=== PATIENT | male | born 1960 | race Caucasian/White ===

== ENCOUNTER 2020-04-02 10:03 | Inpatient (IN) | payer MEDICARE, OTHER ==
[2020-04-02 11:40] LABS: #Eosinphils 0.1 thou/uL (0.0-0.7); #Lymphocytes 1.4 thou/uL (1.20-3.40); #Monocytes 1.1 thou/uL (0.11-0.59); #Neutrophils 9.6 thou/uL (1.40-6.50); %Basophils 0.3 % (0.0-1.0); %Eosinophils 0.6 % (0.0-10.0); %Lymphocytes 11.6 % (21.0-51.0); %Monocytes 9.1 % (0.0-10.0); %Neutrophils 78.4 % (42.0-75.0); Hemoglobin 13.8 g/dL (14.0-18.0); Mean Corpuscular HGB CONC 30.7 g/dL (32.0-36.0); Mean Corpuscular Hemoglobin 24.8 pg (27.0-31.0); Mean Corpuscular Volume 80.7 fL (78.0-98.0); Platelet Count 277 thou/uL (130-400); RBC Distribution Width 15.9 % (11.5-14.5); Red Blood Cell (RBC) Count 5.58 mill/uL (4.70-6.10); White Blood Cell (WBC) Count 12.2 thou/uL (4.8-10.8)
[2020-04-02 12:12] LABS: ALT (SGPT) 43 U/L (8-55); AST (SGOT) 146 U/L (5-34); Acetaminophen Less than 6.0 mcg/mL (10.0-30.0); Albumin 4.2 g/dL (3.5-5.0); Alcohol Less than 10 mg/dL (Less than 10); Alkaline Phosphatase 107 U/L (40-110); Anion Gap 17 mmol/L (10-20); BUN (Urea Nitrogen) 12 mg/dL (8.4-25.7); Bilirubin, Total 0.5 mg/dL (0.2-1.2); Calc. Creatinine Clearance 0 mL/min (70-130); Calcium 8.9 mg/dL (7.8-10.44); Carbon Dioxide 20 mmol/L (22-29); Chloride 107 mmol/L (98-107); Estimated GFR-MDRD 45; Globulin 2.9 g/dL (2.4-3.5); Glucose 105 mg/dL (70-105); Potassium 3.9 mmol/L (3.5-5.1); Protein, Total 7.1 g/dL (6.0-8.3); Salicylate Less than 8.0 mg/dL (15.0-30.0); Sodium 140 mmol/L (136-145)
--- NOTE | 2020-04-02 12:30 | RAD ---
Exam: Chest one view HISTORY:Fall. Pain. Trauma. Comparison: None. FINDINGS: Cardiac silhouette: Normal Aorta: Unremarkable Pulmonary vessels: Normal Costophrenic angles: Clear LUNGS: No masses or consolidation. Pneumothorax: None Osseous abnormalities: None IMPRESSION: No acute cardiopulmonary process.
[2020-04-02 12:37] LABS: CK (CPK) 11542 U/L (30-200)
--- NOTE | 2020-04-02 12:39 | CT ---
CT CERVICAL SPINE WITH CORONAL AND SAGITTAL REFORMATIONS AND NO IV CONTRAST: HISTORY: Injury, neck pain FINDINGS: Mild degenerative changes are present. There is loss of cervical lordosis with straightening of the cervical spine. No fracture, subluxation or facet malalignment is identified. No prevertebral soft tissue swelling is apparent. The visualized lung apices are unremarkable. IMPRESSION: No CT evidence for fracture or traumatic subluxation.
--- NOTE | 2020-04-02 12:46 | CT ---
CT CHEST, ABDOMEN AND PELVIS WITH IV CONTRAST AND CORONAL AND SAGITTAL REFORMATTED FORMATIONS OF THE THORACOLUMBAR SPINE: HISTORY: injury, fall, chest pain, abdominal pain, back pain FINDINGS: No pneumothoraces or pulmonary contusions are seen. No pleural or pericardial effusions are identifie d. No mediastinal hematoma is seen. There are calcified lymph nodes in the mediastinum and hilar regions. The liver, spleen, pancreas, adrenal glands and kidneys appear intact. There are nonobstructing bilat eral renal calculi. Gallbladder and urinary bladder also appear intact. No free air or free fluid is seen in the abdomen or pelvis. No acute fracture or subluxation is seen in the thoracic lumbar spine. There are postop changes and m etallic hardware in the left hemipelvis. IMPRESSION: No CT evidence of acute intrathoracic or solid organ injury.
[2020-04-02] MEDS ORDERED: Ketorolac Tromethamine 30 MG/ML VIAL ONE (12:52)
--- NOTE | 2020-04-02 12:55 | CT ---
BRAIN CT WITHOUT IV CONTRAST: Date: 04/02/2020 HISTORY: Injury from a trip and fall at home with pain, trauma. FINDINGS: No focal mass or midline shift. No intra or extra-axial hemorrhage. Sinuses and mastoids are clear of acute process. IMPRESSION: No significant acute intracranial process. No mass or bleed. POS: OFF
[2020-04-02] MEDS ORDERED: hydrALAZINE 20 MG/ML VIAL SLOW IVP PRN (16:10)
[2020-04-02] MEDS ORDERED: Ondansetron PF 4 MG/2 ML Vial IVP PRN (16:10)
[2020-04-02] MEDS ORDERED: Acetaminophen 325 MG TAB PO PRN (16:10)
[2020-04-02] MEDS ORDERED: Ondansetron ODT 4 MG TAB PO PRN (16:10)
[2020-04-02 16:15] VITALS: BMI 31.9
[2020-04-02 16:48] LABS: Amphetamine Not Detected (NotDetected); Cocaine Metabolite Screen Not Detected (NotDetected); Medtox Reader # READER 4; Methamphetamine Not Detected (NotDetected); Opiate Screen Not Detected (NotDetected); Phencyclidine (PCP) Not Detected (NotDetected); THC/Cannabinoid Screen Detected (NotDetected); Tricyclic Screen Detected (NotDetected)
[2020-04-02 16:49] LABS: Barbiturates Screen Not Detected (NotDetected); Benzodiazepine Screen Not Detected (NotDetected); Medtox Control Line Valid? VALID (VALID); Methadone Not Detected (NotDetected); Oxycodone Screen Not Detected (NotDetected)
[2020-04-02] MEDS: Lactated Ringer's 1,000 ML IV SCH (17:08)
[2020-04-02] MEDS: traMADol HCl 50 MG TAB PO PRN (18:34)
[2020-04-02] MEDS: Famotidine 20 MG TAB PO SCH (20:41)
[2020-04-02] MEDS: busPIRone HCl 10 MG TAB PO SCH (20:41)
--- NOTE | 2020-04-02 21:50 | HP ---
PRIMARY CARE PHYSICIAN: Dr. Sudeep Villafana at [facility] [place]. CHIEF COMPLAINT: Frequent falls. HISTORY OF PRESENT ILLNESS: The history of present illness is extremely limited as the patient is very drowsy and unable to give me a history. His sister has since left the emergency room, who was the historian. I tried calling the phone number in the chart and it went to voicemail. But from review of the records, Mr. Mayer is a 59-year-old gentleman, who has a history of bipolar disorder and schizoaffective disease. Apparently, and according to the sister, the patient does not take his medications as directed and sometimes will take all of his medications at once. Apparently, he has been falling quite a bit at home and she brought him in to the emergency room for evaluation. Apparently, he has been feeling dizzy. He denies any loss of consciousness. He denies hitting his head. There was no weakness in his extremities. He had an evaluation in the ER with a CT scan of the brain as well as a C-spine and abdomen and pelvis, all of which were essentially negative. Chest x-ray was also unrevealing. However, he did have a CK, which was extremely high at 11,542 with evidence of an elevated creatinine and for this reason, he is being admitted for rhabdomyolysis. When I came to see the patient, he was very somnolent. He would wake up. He was able to answer one or two questions with single word answers and then would fall right back to sleep. REVIEW OF SYSTEMS: Unobtainable. PAST MEDICAL HISTORY: According to the ER records include hypertension, bipolar disorder, and schizoaffective disorder. PAST SURGICAL HISTORY: He has had a left orthopedic surgery. ALLERGIES: UNKNOWN. SOCIAL HISTORY: Unobtainable due to the patient being lethargic. FAMILY HISTORY: Also unobtainable. MEDICATIONS: From the records include; 1. Lyrica 200 mg twice daily. 2. Lamictal 25 mg at bedtime. PHYSICAL EXAMINATION: GENERAL: He is drowsy, but appears well developed and well nourished. He does not appear to be in distress. VITAL SIGNS: His blood pressure was 146/105, heart rate was 111, respiratory rate of 20, temperature is 98.9, and O2 saturation was 98% on room air. HEENT: His pupils are equal, round, and reactive to light. Extraocular muscles were intact. His sclerae were anicteric. NECK: There was no adenopathy. No elevated JVP. LUNGS: Clear except for some occasional rhonchi. CARDIOVASCULAR: He had a normal S1 and S2. There is no S3 or S4. No murmurs, clicks, or rubs. ABDOMEN: Obese, it is soft, nontender, and nondistended. Normal bowel sounds. EXTREMITIES: On his extremities, his lower extremities, there was no edema, but he did appear to have some muscle wasting in the calves. His knee, there was no effusions, but some mild erythema. NEUROLOGIC: He is moving all of his extremities. SKIN AND INTEGUMENT: He had a plaque-like silvery rash on the right knee almost psoriatic in appearance and a red patch on the left knee. Otherwise, no other obvious skin lesions. LABORATORY DATA: Lab results; white blood cell count 12.2, hemoglobin 13.8, hematocrit is 45, and platelet count is 277. Sodium 140, potassium 3.9, chloride is 107, CO2 is 20, BUN of 12, creatinine 1.58, glucose is 105, AST is 146, and ALT is 43. CK was 11,542. Plasma toxicology was negative for alcohol, salicylates, or acetaminophen. ASSESSMENT AND PLAN: This is a 59-year-old gentleman, who is very somnolent and has been having frequent falls. He appears to have some type of toxic metabolic encephalopathy right now as he is extremely drowsy and difficult to arouse. He also was found to have rhabdomyolysis with some renal insufficiency or acute kidney injury involved. He will be admitted to the medical floor. He will likely require at least two midnights in order to improve. He will be placed on IV fluids and will monitor his renal function. We will check his electrolytes including phosphate and magnesium. 1. Frequent falls. This is likely due to inappropriate taking of his medications. It is also noted in the records that he may have a history of substance abuse. We will therefore get a urine drug screen as well. He may need adjustments on his psychiatric medications and these will need to be reconciled as certain antidepressants or psychiatric medications, could potentially put him at risk for rhabdomyolysis as well. 2. Hypertension. We will reconcile and restart his antihypertensive medications. 3. He will be placed on deep venous thrombosis and gastrointestinal prophylaxis. Job ID: [id number]
[2020-04-03] MEDS: Lactated Ringer's 1,000 ML IV SCH ×4 (01:13→21:50)
[2020-04-03] MEDS: traMADol HCl 50 MG TAB PO PRN ×3 (05:00→21:49)
[2020-04-03 05:54] LABS: #Eosinphils 0.3 thou/uL (0.0-0.7); #Lymphocytes 1.3 thou/uL (1.20-3.40); #Monocytes 0.8 thou/uL (0.11-0.59); %Basophils 0.1 % (0.0-1.0); %Eosinophils 3.3 % (0.0-10.0); %Lymphocytes 13.4 % (21.0-51.0); %Monocytes 8.5 % (0.0-10.0); %Neutrophils 74.7 % (42.0-75.0); Hemoglobin 11.3 g/dL (14.0-18.0); Mean Corpuscular HGB CONC 30.3 g/dL (32.0-36.0); Mean Corpuscular Hemoglobin 24.8 pg (27.0-31.0); Mean Corpuscular Volume 81.9 fL (78.0-98.0); Mean Platelet Volume 9.7 fL (7.4-10.4); Platelet Count 215 thou/uL (130-400); RBC Distribution Width 15.8 % (11.5-14.5); Red Blood Cell (RBC) Count 4.54 mill/uL (4.70-6.10); White Blood Cell (WBC) Count 9.4 thou/uL (4.8-10.8)
[2020-04-03 06:19] LABS: Anion Gap 12 mmol/L (10-20); BUN (Urea Nitrogen) 11 mg/dL (8.4-25.7); Calc. Creatinine Clearance 95 mL/min (70-130); Calcium 7.6 mg/dL (7.8-10.44); Carbon Dioxide 21 mmol/L (22-29); Chloride 111 mmol/L (98-107); Estimated GFR-MDRD 74; Glucose 105 mg/dL (70-105); Potassium 3.6 mmol/L (3.5-5.1); Sodium 140 mmol/L (136-145)
[2020-04-03 06:31] LABS: CK (CPK) 6355 U/L (30-200)
--- NOTE | 2020-04-03 09:37 | PDOC.HOSPP ---
- Subjective Encounter Date: 04/03/20 Encounter Time: 09:32 Subjective: Mr. Mayer was seen today in follow-up of Rhabdomyolysis. He is complaining of some soreness in his shoulders, and knees. He admits to having dizzy spells off and on, but says they are " rare" , Once a month or so, and lasting a few minutes when they happen. They only occur when standing. He denies that he takes his medications in an irregular manner. He says if he misses a dose in the morning , he will just skip it, or take his evening dose early. He tells me he has had a stroke a few years ago. - Objective Vital Signs & Weight: Vital Signs (12 hours) Temp Pulse Resp BP Pulse Ox 04/03/20 04:00 98.2 F 97 20 135/93 H 94 L 04/03/20 00:00 97.5 F L 100 20 131/87 97 Weight Weight 192 lb 1 oz I&O: 04/02/20 04/03/20 04/04/20 06:59 06:59 06:59 Intake Total 2015 Output Total 1000 Balance 1015 Result Diagrams: 04/03/20 05:24 04/03/20 05:24 Hospitalist ROS - Medication Medications: Active Medications Generic Name Dose Route Start Last Admin Trade Name Gonzaloq PRN Reason Stop Dose Admin Buspirone HCl 10 mg 04/02/20 21:00 04/02/20 20:41 Buspar PO 10 mg TID DAVID Administration Famotidine 20 mg 04/02/20 21:00 04/02/20 20:41 Pepcid PO 20 mg BID DAVID Administration Lactated Ringer's 1,000 mls @ 125 mls/hr 04/02/20 16:10 04/03/20 01:13 Lactated Ringer's IV 1,000 mls .Q8H DAVID Administration Tramadol HCl 50 mg 04/02/20 17:45 04/03/20 05:00 Ultram PO 50 mg Q4H PRN Administration Moderate Pain (4-6) - Exam Eye: PERRL, anicteric sclera Heart: RRR, no murmur, no gallops, no rubs, normal peripheral pulses Respiratory: CTAB, no wheezes, no rales, no ronchi, normal chest expansion, no tachypnea Gastrointestinal: soft, non-tender, non-distended, normal bowel sounds, no palpable masses, no hepatomegaly Extremities: no cyanosis, no edema Neurological: cranial nerve grossly intact, normal sensation to touch, no focal deficits Musculoskeletal - other findings: + mild muscle atrophy in the left lower extremity Psychiatric: A&O x 3 Hosp A/P (1) Rhabdomyolysis Code(s): M62.82 - RHABDOMYOLYSIS Status: Acute (2) Bipolar disorder Code(s): F31.9 - BIPOLAR DISORDER, UNSPECIFIED Status: Acute (3) Hypertension Code(s): I10 - ESSENTIAL (PRIMARY) HYPERTENSION Status: Acute - Plan * Rhabdomyolysis- will continue IV hydration, and continue monitoring CK and renal function * ISABEL- improving * Frequent falls- will discuss with the patient's sister, as his account of the situation is different from what was reported in the ER records. In the meantime will check an MRI to rule out posterior circulation CVA * HTN- re-start his home medications * Bipolar disorder- re-start his home medications
[2020-04-03] MEDS: lamoTRIgine 100 MG TAB PO SCH (09:59)
[2020-04-03] MEDS: Famotidine 20 MG TAB PO SCH ×2 (09:59→21:47)
[2020-04-03] MEDS: Venlafaxine HCl XR 150 MG CAP PO SCH (09:59)
[2020-04-03] MEDS: Enoxaparin Sodium 40 MG/0.4 ML SYRINGE SC SCH (10:02)
[2020-04-03] MEDS: busPIRone HCl 10 MG TAB PO SCH ×3 (10:03→21:47)
[2020-04-03] MEDS: Carvedilol 6.25 MG TAB PO SCH (10:03)
--- NOTE | 2020-04-03 11:17 | MRI ---
MRI BRAIN WITHOUT CONTRAST: HISTORY: Frequent falls, concern for stroke COMPARISON: None CORRELATION: CT scan from 04/02/2020. FINDINGS: No restricted diffusion is seen. The ventricular size is appropriate and the basilar cisterns are pat ent. No evidence of acute infarct, hemorrhage, midline shift or abnormal extra-axial fluid collections is seen. The visualized paranasal sinuses and mastoid air cells are well-aerated. IMPRESSION: No evidence of acute intracranial process.
[2020-04-03 13:03] LABS: SARS-CoV-2 MS2 Positive; SARS-CoV-2 N Gene Negative; SARS-CoV-2 S Gene Negative; SARS-CoV-2 by NAA Not Detected (NotDetected); SARS-CoV-2 orf1ab Negative
[2020-04-03] MEDS: OLANZapine 5 MG TAB PO SCH (21:47)
--- NOTE | 2020-04-03 22:38 | RAD ---
Portable frontal chest radiograph: 04/03/2020 COMPARISON: 04/02/2020 HISTORY: Shortness of breath and wheezing FINDINGS: Lungs are clear. Heart and mediastinal contours appear within normal limits. Calcified node s are noted in the right hilar region. IMPRESSION: No acute findings.
[2020-04-03] MEDS ORDERED: Lactated Ringer's 1,000 ML IV SCH (23:30)
[2020-04-04] MEDS: busPIRone HCl 10 MG TAB PO SCH ×3 (08:30→20:08)
[2020-04-04] MEDS: Venlafaxine HCl XR 150 MG CAP PO SCH (08:35)
[2020-04-04] MEDS: Carvedilol 6.25 MG TAB PO SCH (08:35)
[2020-04-04] MEDS: lamoTRIgine 100 MG TAB PO SCH (08:35)
[2020-04-04] MEDS: Enoxaparin Sodium 40 MG/0.4 ML SYRINGE SC SCH (08:36)
[2020-04-04] MEDS: Famotidine 20 MG TAB PO SCH ×2 (08:37→20:07)
[2020-04-04] MEDS: traMADol HCl 50 MG TAB PO PRN ×2 (08:44→20:08)
[2020-04-04 08:46] LABS: Anion Gap 13 mmol/L (10-20); BUN (Urea Nitrogen) 7 mg/dL (8.4-25.7); Calc. Creatinine Clearance 110 mL/min (70-130); Calcium 7.9 mg/dL (7.8-10.44); Carbon Dioxide 21 mmol/L (22-29); Chloride 110 mmol/L (98-107); Estimated GFR-MDRD 88; Glucose 82 mg/dL (70-105); Potassium 3.7 mmol/L (3.5-5.1); Sodium 140 mmol/L (136-145)
[2020-04-04 08:56] LABS: CK (CPK) 4219 U/L (30-200)
[2020-04-04] MEDS: Lactated Ringer's 1,000 ML IV SCH ×2 (12:19→17:40)
--- NOTE | 2020-04-04 15:22 | PDOC.HOSPP ---
- Subjective Encounter Date: 04/04/20 Encounter Time: 15:20 Subjective: Mr. Mayer was seen today in follow-up of Rhabdomyolysis. He says he feels a little weak and tired this afternoon. No new complaints. - Objective Vital Signs & Weight: Vital Signs (12 hours) Temp Pulse Resp BP Pulse Ox 04/04/20 11:11 98.1 F 75 20 129/86 95 04/04/20 09:00 92 L 04/04/20 08:00 97.6 F 91 20 118/79 92 L Weight Admit Weight 192 lb Weight 192 lb 1 oz I&O: 04/03/20 04/04/20 04/05/20 06:59 06:59 06:59 Intake Total 20145 Output Total 1000 575 Balance 1015 1900 Result Diagrams: 04/03/20 05:24 04/04/20 03:30 Hospitalist ROS - Medication Medications: Active Medications Generic Name Dose Route Start Last Admin Trade Name Freq PRN Reason Stop Dose Admin Buspirone HCl 10 mg 04/02/20 21:00 04/04/20 08:30 Buspar PO 10 mg TID DAVID Administration Carvedilol 12.5 mg 04/03/20 09:00 04/04/20 08:35 Coreg PO 12.5 mg DAILY DAVID Administration Enoxaparin Sodium 40 mg 04/03/20 09:00 04/04/20 08:36 Lovenox SC 40 mg 0900 DAVID Administration Famotidine 20 mg 04/02/20 21:00 04/04/20 08:37 Pepcid PO 20 mg BID DAVID Administration Lactated Ringer's 1,000 mls @ 125 mls/hr 04/02/20 16:10 04/04/20 12:19 Lactated Ringer's IV Not Given .Q8H DAVID Lamotrigine 100 mg 04/03/20 09:00 04/04/20 08:35 Lamictal PO 100 mg DAILY DAVID Administration Olanzapine 15 mg 04/03/20 21:00 04/03/20 21:47 Zyprexa PO 15 mg HS DAVID Administration Tramadol HCl 50 mg 04/02/20 17:45 04/04/20 08:44 Ultram PO 50 mg Q4H PRN Administration Moderate Pain (4-6) Venlafaxine HCl 150 mg 04/03/20 09:00 04/04/20 08:35 Effexor Xr PO 150 mg DAILY DAVID Administration - Exam Eye: PERRL, anicteric sclera Heart: RRR, no murmur, no gallops, no rubs, normal peripheral pulses Respiratory: CTAB (with some coarse breath sounds), no wheezes, no rales, normal chest expansion, no tachypnea Gastrointestinal: soft, non-tender, non-distended, normal bowel sounds, no palpa ble masses Extremities: no cyanosis, no edema Hosp A/P (1) Rhabdomyolysis Code(s): M62.82 - RHABDOMYOLYSIS Status: Acute (2) Bipolar disorder Code(s): F31.9 - BIPOLAR DISORDER, UNSPECIFIED Status: Acute (3) Hypertension Code(s): I10 - ESSENTIAL (PRIMARY) HYPERTENSION Status: Acute - Plan * Rhabdomyolysis- improving. Will discontinue IV fluids today ( on exam his lungs sound a little * ISABEL- resolved * Frequent falls- I had a chance to talk with his sisterTerry ). She assures me that the patient does not take his medication as prescribed. She lays them out each night, and at times he will forget a dose, and then take all the medication once remembered.She tells me that he just " lied" . She believes this happens when he gets stressed. She plans to discuss this with his Psychiatrist. Falls likely due to medications ( Lyrica specifically) * If his CK continues to improve off IV fluids then can consider discharge home tomorrow * HTN- stable * Bipolar disorder- stable
[2020-04-04] MEDS: OLANZapine 5 MG TAB PO SCH (20:08)
[2020-04-05 06:10] LABS: Anion Gap 13 mmol/L (10-20); BUN (Urea Nitrogen) 7 mg/dL (8.4-25.7); CK (CPK) 2271 U/L (30-200); Calc. Creatinine Clearance 111 mL/min (70-130); Carbon Dioxide 24 mmol/L (22-29); Chloride 106 mmol/L (98-107); Estimated GFR-MDRD 90; Glucose 78 mg/dL (70-105); Potassium 3.7 mmol/L (3.5-5.1); Sodium 139 mmol/L (136-145)
[2020-04-05] MEDS: lamoTRIgine 100 MG TAB PO SCH (07:53)
[2020-04-05] MEDS: Venlafaxine HCl XR 150 MG CAP PO SCH (07:53)
[2020-04-05] MEDS: Enoxaparin Sodium 40 MG/0.4 ML SYRINGE SC SCH (07:53)
[2020-04-05] MEDS: Carvedilol 6.25 MG TAB PO SCH (07:53)
[2020-04-05] MEDS: Famotidine 20 MG TAB PO SCH ×2 (07:53→20:27)
[2020-04-05] MEDS: busPIRone HCl 10 MG TAB PO SCH ×3 (07:54→20:26)
--- NOTE | 2020-04-05 11:21 | PDOC.HOSPP ---
- Subjective Encounter Date: 04/05/20 Encounter Time: : Subjective: Patient seen for follow-up regarding rhabdomyolysis. Denies chest pain or shortness of breath. - Objective Vital Signs & Weight: Vital Signs (12 hours) Temp Pulse Resp BP Pulse Ox 04/05/20 08:00 94 L 04/05/20 07:47 98.7 F 88 20 129/84 94 L Weight Admit Weight 192 lb Weight 192 lb 1 oz I&O: 04/04/20 04/05/20 04/06/20 06:59 06:59 06:59 Intake Total 2475 1170 360 Output Total 575 725 Balance 1900 445 360 Result Diagrams: 04/03/20 05:24 04/05/20 05:26 Additional Labs: I reviewed patient's labs and MAR Hospitalist ROS - Review of Systems Cardiovascular: denies: chest pain, palpitations, orthopnea, paroxysmal noc. dyspnea, edema, light headedness Gastrointestinal: denies: nausea, vomiting, abdominal pain, diarrhea, constipation, melena, hematochezia - Medication Medications: Active Medications Generic Name Dose Route Start Last Admin Trade Name Freq PRN Reason Stop Dose Admin Buspirone HCl 10 mg 04/02/20 21:00 04/05/20 07:54 Buspar PO 10 mg TID DAVID Administration Carvedilol 12.5 mg 04/03/20 09:00 04/05/20 07:53 Coreg PO 12.5 mg DAILY DAVID Administration Enoxaparin Sodium 40 mg 04/03/20 09:00 04/05/20 07:53 Lovenox SC 40 mg 0900 DAVID Administration Famotidine 20 mg 04/02/20 21:00 04/05/20 07:53 Pepcid PO 20 mg BID DAVID Administration Lamotrigine 100 mg 04/03/20 09:00 04/05/20 07:53 Lamictal PO 100 mg DAILY DAVID Administration Olanzapine 15 mg 04/03/20 21:00 04/04/20 20:08 Zyprexa PO 15 mg HS DAVID Administration Tramadol HCl 50 mg 04/02/20 17:45 04/04/20 20:08 Ultram PO 50 mg Q4H PRN Administration Moderate Pain (4-6) Venlafaxine HCl 150 mg 04/03/20 09:00 04/05/20 07:53 Effexor Xr PO 150 mg DAILY DAVID Administration - Exam General - other findings: Obese Eye: anicteric sclera ENT: no oropharyngeal lesions Neck: supple Heart: RRR Respiratory: CTAB Gastrointestinal: soft, non-tender Extremities: no cyanosis Skin: no rashes Musculoskeletal: no muscle wasting Psychiatric: normal affect, normal behavior Hosp A/P - Plan (1) Rhabdomyolysis Code(s): M62.82 - RHABDOMYOLYSIS Status: Acute (2) Bipolar disorder Code(s): F31.9 - BIPOLAR DISORDER, UNSPECIFIED Status: Chronic (3) Hypertension Code(s): I10 - ESSENTIAL (PRIMARY) HYPERTENSION Status: Chronic - Plan * Rhabdomyolysis- improving. CK decreased, 2271 today. Recheck CK in the morning. Encourage oral fluid intake. * ISABEL- resolved * Frequent falls * HTN- stable * Bipolar disorder- stable * * Patient will need home health for [facility] and physical therapy upon discharge.
[2020-04-05] MEDS: traMADol HCl 50 MG TAB PO PRN ×2 (14:34→20:27)
[2020-04-05] MEDS: OLANZapine 5 MG TAB PO SCH (20:27)
[2020-04-06 06:40] LABS: Anion Gap 13 mmol/L (10-20); BUN (Urea Nitrogen) 9 mg/dL (8.4-25.7); CK (CPK) 1177 U/L (30-200); Calc. Creatinine Clearance 101 mL/min (70-130); Calcium 8.6 mg/dL (7.8-10.44); Carbon Dioxide 27 mmol/L (22-29); Chloride 105 mmol/L (98-107); Estimated GFR-MDRD 80; Glucose 96 mg/dL (70-105); Potassium 3.4 mmol/L (3.5-5.1); Sodium 142 mmol/L (136-145)
[2020-04-06 07:13] VITALS: TEMP 98
[2020-04-06 07:14] VITALS: BP 161/103
[2020-04-06] MEDS: Famotidine 20 MG TAB PO SCH (08:03)
[2020-04-06] MEDS: Enoxaparin Sodium 40 MG/0.4 ML SYRINGE SC SCH (08:03)
[2020-04-06] MEDS: Carvedilol 6.25 MG TAB PO SCH (08:04)
[2020-04-06] MEDS: Venlafaxine HCl XR 150 MG CAP PO SCH (08:04)
[2020-04-06] MEDS: lamoTRIgine 100 MG TAB PO SCH (08:04)
[2020-04-06] MEDS: busPIRone HCl 10 MG TAB PO SCH (08:04)
[2020-04-06] MEDS ORDERED: Potassium Chloride 20 MEQ TAB PO SCH (10:00)
--- NOTE | 2020-04-06 10:20 | DIS ---
DATE OF ADMISSION: 04/02/2020 DATE OF DISCHARGE: 04/06/2020 PRIMARY CARE PROVIDER: Dr. Sudeep Villafana DISCHARGE DIAGNOSES: 1. Rhabdomyolysis. 2. Acute kidney injury. 3. Frequent falls. CONDITION: Condition of the patient on the day of discharge: Stable. I assessed Mr. Mayer on the day of discharge. He denies any chest pain or shortness of breath. Vital signs are stable. S1 and S2 are heard, regular. Lungs are clear to auscultation bilaterally. HOSPITAL COURSE: Mr. Mayer is a pleasant 59-year-old gentleman, who was admitted to [facility] on April 02, 2020, for acute kidney injury and rhabdomyolysis. Creatinine was 1.58 at the time of admission. CK level was 11,542. He received intravenous fluids with improvement in CK level. He was also evaluated by Physical Therapy Service for history of frequent falls. He has been recommended home with home health for physical therapy. Home health for residential is also being requested because there is concern over his medication management. Preliminary blood cultures are negative at the time of this dictation. He is advised to follow up with primary care provider for final blood culture results. Urine drug screen was positive for tricyclics and cannabinoids during this hospitalization. He has been advised to stop recreational drug use. COVID-19 PCR test was negative. On the day of discharge, he has sodium 142, potassium 3.4, which is being replaced, creatinine 0.96. Creatine kinase 1177. Many thanks for allowing me to participate in your patient's care. Please feel free to contact me with any questions or concerns. POST-ACUTE CARE FOLLOWUP: With primary care provider in 3 days. DISCHARGE DESTINATION: Home. ACTIVITY: As tolerated. DIET: Regular. TIME SPENT: Total amount of time spent in coordinating this discharge: 32 minutes. Job ID: [id number]
--- NOTE | 2020-04-07 13:39 | EKG ---
Test Reason : FALL/WEAKNESS Blood Pressure : / mmHG Vent. Rate : 116 BPM Atrial Rate : 116 BPM P-R Int : 146 ms QRS Dur : 114 ms QT Int : 332 ms P-R-T Axes : 073 268 014 degrees QTc Int : 461 ms Sinus tachycardia Right superior axis deviation Inferior-posterior infarct , age undetermined Abnormal ECG Confirmed by ANYI BAE DO ([id number]), loan expeditor MARGOT GIBSON ([id number]) on 04/07/2020 1:38:57 PM [facility] Confirmed By:ANYI BAE DO
--- NOTE | 2020-04-07 14:17 | PQF ---
CLINICAL DOCUMENTATION CLARIFICATION FORM: Dear : Ryan Su Date / Time: 04/07/2020 Please exercise your independent, professional judgment in responding to the clarification form. Clinical indicators are provided on the bottom of this form for your review Please check appropriate box(es): [ ] Traumatic rhabdomyolysis [ x ] Nontraumatic rhabdomyolysis [ ] Other diagnosis [ ] Unable to determine In addition, please specify: Present on Admission (POA): [ x] Yes [ ] No [ ] Unable to determine To be completed by CDI/Coding staff for physician review: Present Clinical Indicators - Signs / Symptoms / Labs Results and Location in Medical Record [ x ] He has been falling quite a bit at home and she brought him in to the ED for evaluation. He denies hitting his head. [place] [address] with elevated creatinine and he is admitted for rhabdomyolysis H&P [ x ] Patient presents to the ED for chief complaint of fall. Patient was lying on the ground for significant amount times, did have elevated CK and creatinine, given 2 L of fluids. ED provider notes [ [place] [address] on 04/02, 6355 on 04/03, 4219 on 04/04 and 2271 on 04/05 Laboratory Present Risk Factors Results and Location in Medical Record [ x ] Frequent falls, substance abuse H&P Present Treatments Results and Location in Medical Record [ x ] IV fluids 04/02-04/04 Medications CDS/Baggage Porter Head Signature: [email or web address] Phone #: Date/Time: 04/07/2020 This is a permanent part of the Medical Record [facility]
--- NOTE | 2020-04-07 14:29 | PQF ---
CLINICAL DOCUMENTATION CLARIFICATION FORM: Dear : Ryan Su Date / Time: 04/07/2020 Please exercise your independent, professional judgment in responding to the clarification form. Clinical indicators are provided on the bottom of this form for your review Please check appropriate box(es) to clarify if the following diagnosis has been ruled in our ruled out: Toxic/metabolic encephalopathy [ x ] Ruled in diagnosis [ ] Continue to treat [ x ] Resolved [ ] Ruled out diagnosis [ ] Improving [ ] Cannot rule out diagnosis [ ] Other diagnosis [ ] Unable to determine In addition, please specify: Present on Admission (POA): [ x ] Yes [ ] No [ ] Unable to determine To be completed by CDI/Coding staff for physician review: Present Clinical Indicators - Signs / Symptoms / Labs Results and Location in Medical Record [ x ] Patient is very somnolent and has been having frequent falls. Appears to be having toxic metabolic encephalopathy right now as he is extremely drowsy and difficult to arouse H&P [ x ] Urine drug screen was positive for tricyclics and cannabinoids during this hospitalized. He has been advised to stop recreational drug use Discharge summary [ x ] Patient has inappropriate taking of his medications. It is also noted in the records that patient may have history of substance abuse. He may need adjustment on his psychiatric medications H&P Present Risk Factors Results and Location in Medical Record [ x ] Substance abuse H&P [ x ] Positive urine drug screen for tricyclics and cannabinoids Discharge summary Present Treatments Results and Location in Medical Record [ x ] Brain CT 04/02 and brain MRI 04/03 Reports [ x ] Advised to stop recreational drug use Discharge summary CDS/Cloth Shearing Supervisor Signature: [email or web address] Phone #: Date/Time: 04/07/2020 This is a permanent part of the Medical Record [facility]
== END 2020-04-06 10:28 | disposition home or self-care (01) | DRG 557 ==
LOC: ERS 10:03 → T4-B 13:40
PROVIDERS: ADMIT Internal Medicine; ATTEND Internal Medicine
DX: M62.82 Rhabdomyolysis (principal); G92 Toxic encephalopathy; N17.9 Acute kidney failure, unspecified; Z20.828 Contact with and (suspected) exposure to other viral communicable diseases; I10 Essential (primary) hypertension; F31.9 Bipolar disorder, unspecified; F25.9 Schizoaffective disorder, unspecified
CPT/HCPCS: 36415; 70450; 70551; 71045; 71260; 72125; 74177; 80048; 80053; 80306; 80307; 82550; 83605; 84484; 85025; 87040; 87635; 90471; 90732; 93005; 94640; 94760; 96361; 96374; G0009; J1650; J1885; J7620; U0003